=== PATIENT | male | born 1960 | race Caucasian/White ===

== ENCOUNTER 2023-09-20 16:03 | Outpatient (CLI) | payer OTHER, SELFPAY ==
[2023-09-20 16:15] VITALS: BP 165/83; PULSE 85; RESP 20; TEMP 36.7; O2SAT 95
[2023-09-20 16:51] VITALS: PULSE 79; O2SAT 93
--- NOTE | 2023-09-20 16:54 | PDOC.PAIN_ITS ---
Date of service: 09/20/23 Time of Service: 16:54 US Guided Injections Type of Ultrasound Guided Injection: Neck Right Levator scapulae, Paraspinous and Trapezius muscle Trigger Point Injection Pre-Procedural Evaluation TTP at the proposed muscles Referral Patient has been referred to the [facility] for Right Levator scapulae, Paraspinous and Trapezius muscle Neck Trigger Point Injection for a chief complaint of Right-sided neck pain Pre-Procedural Pain Score Pre-procedural pain score: 10/10 Reason for Exam Right-sided neck pain Patient Interview Patient was interviewed and medical record reviewed: Yes There were no contraindications to performing an US guided procedure. Risks,expected side effects, potential benefits were reviewed. The patient consent form was signed and witnessed. Standard time out procedure was performed. Patient Safety No skin abnormalities at the injection sight Procedure Description No sedation given for procedure Patient was placed in the prone position and the following Pulse Ox applied. Pre-Procedure ultrasound scanning performed using a Linear 9 MHz probe Site Preparation Chloroprep Local Anesthesia Skin and subcutaneous tissues anesthetized with: 5 mL of Lidocaine 2%. A 21 G 3.5 Pajunk ultrasound needle was placed under live US guidance using an in-plane approach to the target area. After visualization of the needle tip at the target area Depo-Medrol 40mg per cc were used. Total of Injectate/Medication Note: 1 cc Negative aspiration for blood. [place] were removed without difficulty. Ultrasound images were captured and stored. Patient Mental Status Patient was alert and awake during procedure Vital Signs Vital signs were stable throughout the procedure and recorded by nursing. Follow Up/Discharge Follow up plans and appointments were discussed with patient. Post procedure instruction was given as documented in nursing documentation. Discharge criteria met and patient discharged from Pain Management Center: Yes Post Procedure Pain Post Procedure Pain: 1/10 Patient tolerated procedure well Procedure Outcome: Successful Trigger Point Injection 3+muscles Non US Guided Injections Procedure Description Patient was placed in the prone position Post Procedure Pain Post Procedure Pain: 1/10
[2023-09-20] MEDS: Lidocaine 2% Multi-Dose 20 ML VIAL IJ (16:56)
[2023-09-20] MEDS: Nerve Block Tray 1 EACH MC (16:56)
[2023-09-20] MEDS: methylPREDNISolone ACETATE 40 MG/ML VIAL IJ (16:56)
== END 2023-09-20 16:04 | disposition home or self-care (01) ==
PROVIDERS: PCP Family Medicine; Visit Provider Preventive Medicine Occupational Medicine
DX: M54.2 Cervicalgia (principal); M79.18 Myalgia, other site
CPT/HCPCS: 00123; 20553; 76942; J1030; J2003

== ENCOUNTER 2023-11-15 11:04 | Outpatient (CLI) | payer OTHER, SELFPAY ==
[2023-11-15 11:11] VITALS: BP 170/88; PULSE 75; RESP 20; TEMP 36; O2SAT 96
--- NOTE | 2023-11-15 11:40 | DI.RAD_ITS ---
Exam(s) XR PAIN CLINIC SACRIOILIAC 2V EXAM: XR PAIN CLINIC SACRIOILIAC 2V CLINICAL HISTORY: Dx: Cluneal Neuropathy TECHNIQUE: 2D and realtime digital imaging was performed. Radiologist not present. CONTRAST MATERIAL: None. COMPARISON: No exams were available for comparison FINDINGS: Fluoroscopy was provided for pain management therapy. Please refer to procedure report or details. Radiation Exposure Index: Ka,r=5.83 mGy IMPRESSION: As above. RADIATION DOSE DELIVERED:
[2023-11-15 11:43] VITALS: BP 151/97; PULSE 70; RESP 14; O2SAT 95
[2023-11-15] MEDS: Nerve Block Tray 1 EACH MC (11:45)
[2023-11-15] MEDS: Bupivacaine 0.5% Pres-Free 10 ML VIAL IJ (11:45)
[2023-11-15] MEDS: Omnipaque 240 MG/ML 50 ML BTL IJ (11:45)
--- NOTE | 2023-11-15 15:50 | PDOC.PAIN_ITS ---
Date of service: 11/15/23 Time of Service: 12:00 Pain Managment Procedure Note Procedure Note Procedure Note: PROCEDURE NOTE BILATERAL CLUNEAL NERVE BLOCKS Date of Service: November 15, 2023 Patient: Mo Thomas Provider: Sudhakar Ramirez DO, MPH COMMENTS: I previously evaluated the patient in the office and their symptoms in relation to the sacroiliac joint pain have remained the same. Pre-operative diagnosis: Sacroiliac joint dysfunction Post-operative diagnosis: Same Pre-procedure pain: VAS= 6/10 Mo Thomas has been referred to our [facility] for a Bilateral Cluneal nerve blocks. Mo was interviewed and the medical record reviewed. There were no medical, pharmacologic, radiographic or other structural contraindications to attempting a fluoroscopically-guided, contrast-enhanced, Cluneal nerve blocks. The risks, benefits, and potential side effects of this procedure were reviewed with the patient. Questions and concerns were addressed. After it was clear that Mo was fully informed about the procedure, the printed consent form was signed by the patient and myself. Mo was placed in the prone position on the fluoroscopy table and an automated blood pressure cuff, 3 lead EKG, and pulse oximeter were applied. The skin entry point for approaching the Left Cluneal nerves was identified under the most advantageous fluoroscopic view and marked. Following thorough Chlorhexadine preparation of the skin and draping with sterile surgical drapes, 2 mls of 1% lidocaine was infiltrated into the skin at the entry point and the surrounding subcutaneous tissues. Next, a 3.5 22G spinal needle was placed under fluoroscopic guidance to the left iliac crest and 2 needles were placed. Placement was confirmed by a clear arthrogram resulting from the injection of 0.25ml of Omnipaque-240. Next, 1 cc of 0.5% Marcaine was injected at 2 locations along the iliac crest. The needle was then removed without difficulty. (48 ml of Omnipaque-240 was wasted). The exact procedure was completed on the opposite Cluneal nerves. Mo's vital signs were stable throughout the procedure and were as recorded in nursing records. Follow up plans and appointments were discussed with Mo. Post procedure instructions were given as documented in nursing records. Having met discharge criteria, Mo was discharged from the [facility]. COMMENTS: Post-procedure pain: VAS= 0/10. He will call back with his 1-4 hour post-procedure pain scores to see if he qualifies for RFA. I personally performed this entire procedure. SUDHAKAR RAMIREZ DO, MPH ABPMR-subspecialty board certification in Pain Medicine [facility]
== END 2023-11-15 11:05 | disposition home or self-care (01) ==
LOC: PC 11:04
PROVIDERS: PCP Family Medicine; Visit Provider Preventive Medicine Occupational Medicine
DX: M54.50 Low back pain, unspecified (principal); M46.1 Sacroiliitis, not elsewhere classified
CPT/HCPCS: 64450; 72200; J0665; Q9967

== ENCOUNTER 2024-07-01 15:18 | Outpatient (CLI) | payer OTHER, SELFPAY ==
--- NOTE | 2024-07-01 14:11 | DI.RAD_ITS ---
Exam(s) XR KNEE RT 1V EXAM: XR KNEE RT 1V CLINICAL HISTORY: pain. TECHNIQUE: 2D digital imaging was performed. COMPARISON: CR XR KNEE BILATERAL 4+ VIEWS from 11/22/2018 FINDINGS: Single lateral view of right knee: No evidence of fracture. There is ajrf-qb-bylt narrowing of the medial compartment. Moderate degene rative changes are evident in the patellofemoral compartment. There is a prominent joint effusion in the suprapatellar bursa. Posteriorly there are no calcifications, as are evident posteriorly in the opposite-left knee seen on radiographs of 11/22/2018 and most probably within Lan cyst in the popliteal fossa. IMPRESSION: Advanced narrowing of the medial compartment of the right knee. Joint effusion. DATA REPOSITORY: RADIATION DOSE DELIVERED:
--- NOTE | 2024-07-01 14:11 | DI.RAD_ITS ---
Exam(s) XR STANDING ALIGNMENT EXAM: XR STANDING ALIGNMENT CLINICAL HISTORY: pain. TECHNIQUE: 2D digital imaging was performed. COMPARISON: CR XR KNEE RT TRAUMA 4+ VIEWS [facility] ONLY from 12/08/2010 FINDINGS: 3 views There is posterior fusion hardware in the lower lumbar spine at L4-5-S1 levels secured by bilateral i ntrapedicular screws at these levels. The SI joints appear unremarkable. Hips appear unremarkable. Both knees exhibit urgb-rk-nafm narrowing of the medial compartments and marginal osteophytes of the medial compartments. There are also degenerative subarticular cysts evident within the medial tibial plateau over the left knee. There is preservation of height of the lateral compartment of both knee s with mild chondrocalcinosis. There is an element of Verus deformity bilaterally, slightly more pro minent on the right side. Hips appear unremarkable. Ankles unremarkable. IMPRESSION: Advanced prho-bi-txvz narrowing of the medial compartments of both knees. Bilateral varus deformity . DATA REPOSITORY: RADIATION DOSE DELIVERED:
== END 2024-07-01 15:19 | disposition home or self-care (01) ==
LOC: DIORS 15:18
PROVIDERS: PCP Family Medicine; Referring Provider Family Medicine; Visit Provider Student in an Organized Health Care Education/Training Program
DX: M17.11 Unilateral primary osteoarthritis, right knee (principal); M17.12 Unilateral primary osteoarthritis, left knee
CPT/HCPCS: 99203; 73560; 77073

== ENCOUNTER 2024-08-15 03:48 | Outpatient (CLI) | payer MEDICARE, SELFPAY ==
[2024-08-15 15:04] LABS: HCT 42.2 % (40.0-50.0); HGB 14.3 g/dL (13.5-17.5); MCH 33.6 pg (27.0-33.0); MCHC 33.9 % (32.0-36.0); MCV 99 fL (80-95); Platelet Count 242 10^3/uL (130-400); RBC 4.26 10^6/uL (4.36-5.78); RDW 13.7 % (11.8-14.1); RDW-SD 49.5 fL
[2024-08-15 15:33] LABS: Anion Gap 4.1 mmol/L (3-11); BUN 34 mg/dL (7-18); CO2 29.9 mmol/L (21.0-32.0); CREATININE 1.1 mg/dL (0.70-1.30); Calcium 9.9 mg/dL (8.5-10.1); Chloride 100 mmol/L (98-107); Glucose 88 mg/dL (74-106); Potassium 5.2 mmol/L (3.5-5.1); Sodium 134 mmol/L (136-145)
== END 2024-08-15 03:49 | disposition home or self-care (01) ==
LOC: LBO 03:49
PROVIDERS: PCP Family Medicine; Visit Provider Student in an Organized Health Care Education/Training Program
DX: Z01.818 Encounter for other preprocedural examination (principal)
CPT/HCPCS: 36415; 80048; 85027

== ENCOUNTER 2024-08-27 08:26 | Day surgery (SDC) | payer MEDICARE, SELFPAY ==
[2024-08-27] VITALS (65 sets, daily range): BP systolic 121–230; BP diastolic 67–164; PULSE 66–89; RESP 11–23; TEMP 36–36.9; O2SAT 83–98; BMI 28.5
--- NOTE | 2024-08-27 07:40 | W.PM.DSUDISC ---
Date of service: 08/27/24 Discharge Plan Disposition Patient Disposition: Home Condition: Good Discharge Details Reason For Visit: Right knee DJD Attending Provider: Shelton Crow Primary Care Provider: Karl Ngo Home Meds and New Rx's Prescriptions: New celecoxib [Celebrex] 200 mg capsule 200 mg PO BID PRNQty: 60 0RF Rx Instructions: Take one tablet twice daily for pain and inflammation aspirin 81 mg tablet,delayed release (DR/EC) 81 mg PO BID 30 Days Qty: 60 0RF acetaminophen 500 mg tablet 1,000 mg PO Q8H PRN Qty: 90 0RF Rx Instructions: Take two tablets up to every 8 hours as needed for pain docusate sodium [Colace] 100 mg capsule 100 mg PO BID Qty: 30 0RF pantoprazole 40 mg tablet,delayed release (DR/EC) 40 mg PO DAILY Qty: 14 0RF dexamethasone 4 mg tablet 4 mg PO DAILY Qty: 2 0RF Rx Instructions: Take one tablet once daily for two days gabapentin 300 mg capsule 300 mg PO QHS Qty: 14 0RF Rx Instructions: Take one tablet at bedtime oxycodone 5 mg tablet 5 mg PO Q4H PRNQty: 18 0RF Rx Instructions: Take one tablet up to every 4 hours as needed for severe postoperative pain Continued albuterol sulfate 90 mcg/actuation HFA aerosol inhaler 2 puff inhalation Q6H PRN pravastatin 40 mg tablet 40 mg PO DAILY tamsulosin [Flomax] 0.4 mg capsule 0.8 mg PO DAILY tizanidine 4 mg tablet 4 mg PO TID PRN tramadol 50 mg tablet 100 mg PO QID PRN lisinopril 40 mg tablet 40 mg PO DAILY sildenafil 100 mg tablet 100 mg PO DAILY PRN Rx Instructions: administer 30 minutes to 4 hours before activity spironolactone 50 mg tablet 50 mg PO DAILY Discontinued meloxicam 15 mg tablet 15 mg PO DAILY Discharge Instructions Additional Instructions: Total Knee Discharge Instructions Activity: The most important activity is to walk and to work on gentle motion (both flexion and extension). You should try to take short walks a few times a day. It is important that when resting you work on keeping the knee straight. Avoid putting a pillow behind the knee as this will encourage flexion. Work on range of motion exercises as provided by Physical Therapy. - Start outpatient physical therapy within 2 weeks. - You should wear the LAM hose on both legs for 2 weeks. You may remove these at night. You may also use any compression sock in place of the LAM hose. - Utilize [employer] to review exercises, see videos on exercises and obtain basic information pertaining to your surgery and your recovery. Dressing: Remove the Lc wrap by 2 days after your surgery and put on the LAM stocking given to you from the hospital. Keep the surgical dressing (underneath the LC wrap) in place for at least one week. After the first week it may be removed and replaced with light gauze and tape or nothing. The wound and dressing may get wet after 3 days but avoid soaking the dressing or otherwise it will need to be changed. Many people prefer covering the dressing with cling wrap (saran wrap) to minimize it from getting soaked. If it gets wet, just pat dry. If it starts to peel off then it will need to be changed. Medications: - You should take Tylenol and anti-inflammatory Celebrex as your primary pain control medications. If the Celebrex is too expensive or not covered, please call the office for another alternative (Advil/Ibuprofen or Naproxen/Aleve) - You have been prescribed a stronger pain medication Oxycodone for breakthrough pain, take as needed as prescribed. - You have also been prescribed a stomach acid reduction agent Pantoprozole to help reduce stomach acid and reflux. - You have been prescribed Gabapentin to take at night for restlessness and nerve pain. - You will be taking Aspirin 81mg twice a day for DVT prevention unless instructed otherwise. - You have also been prescribed Decadron to take to control post-operative nausea and pain. You will start this tomorrow. - If you have constipation you should take Colace (which has been prescribed) or Miralax (which is available [id number]). It takes most people 3-4 days to have a bowel movement. Follow-up: 2 weeks If you have any acute concerns or questions, please do not hesitate to contact the office at [phone]. You may contact Dr. Crow with any questions after hours through the hospital at [phone] or on his cell phone at [phone]. Referrals: Shelton Crow MD [ [facility] STAFF PHYSICIAN] - Equipment/Supplies: Walker Activity:: Elevate Remove Dressings/Wound Care:: Do Not Remove Shower/Bathe:: Cover Diet:: As Tolerated Discharge Orders Discharge Orders: Discharge Order (Routine); Ordered 08/27/24 Ordered By: Nandini Hernández
--- NOTE | 2024-08-27 08:17 | W.ANESPRE ---
General Info Date of Service Date Performed: 08/27/24 Height: 5 ft 5.5 in Weight: 78.925 kg Body Mass Index (BMI): 28.5 Surgical Procedure: Operation Date: 08/27/24 11:25 Proposed Procedure Side Surgeon p Knee Total Arthroplasty w/OrthAlign, Cementless CR Right Shelton Crow MD Meds Allergies and Home Medications Allergies Allergy/AdvReac Type Severity Reaction Status Date / Time No Known Allergies Allergy Verified 08/27/24 08:52 Home Medication ?Medication ?Instructions ?Recorded albuterol sulfate 90 mcg/actuation 2 puff inhalation Q6H PRN 06/06/23 aerosol inhaler pravastatin 40 mg tablet 40 mg PO DAILY 06/06/23 tamsulosin 0.4 mg capsule (Flomax) 0.8 mg PO DAILY 06/06/23 tizanidine 4 mg tablet 4 mg PO TID PRN 06/06/23 tramadol 50 mg tablet 100 mg PO QID PRN 06/06/23 sildenafil 100 mg tablet 100 mg PO DAILY PRN 09/05/23 spironolactone 50 mg tablet 50 mg PO DAILY 04/24/24 lisinopril 40 mg tablet 40 mg PO DAILY 08/15/24 acetaminophen 500 mg tablet 1,000 mg (2 x 500 mg) PO Q8H PRN 08/27/24 pain #90 tabs aspirin 81 mg tablet,delayed 81 mg PO BID 30 days #60 tabs 08/27/24 release celecoxib 200 mg capsule (Celebrex) 200 mg PO BID PRN #60 caps 08/27/24 dexamethasone 4 mg tablet 4 mg PO DAILY #2 tabs 08/27/24 docusate sodium 100 mg capsule 100 mg PO BID #30 caps 08/27/24 (Colace) gabapentin 300 mg capsule 300 mg PO QHS #14 caps 08/27/24 oxycodone 5 mg tablet 5 mg PO Q4H PRN #18 tabs 08/27/24 pantoprazole 40 mg tablet,delayed 40 mg PO DAILY #14 tabs 08/27/24 release Current Visit Medications: Current Medications Generic Name Dose Route Start Last Admin Trade Name Freq PRN Reason Stop Dose Admin Acetaminophen 1,000 mg 08/27/24 06:00 Acetaminophen 500 Mg Tab PO 09/25/24 23:59 PREOP TORY Celecoxib 400 mg 08/27/24 06:00 Celecoxib 200 Mg Cap PO 09/25/24 23:59 PREOP TORY Gabapentin 300 mg 08/27/24 06:00 Gabapentin 300 Mg Cap PO 09/25/24 23:59 PREOP TORY Hydromorphone HCl 0.5 mg 08/27/24 07:37 Hydromorphone 2 Mg/Ml Syr IVP 09/26/24 07:36 Q2H PRN PRN Ringer's Solution 1,000 mls @ 80 mls/hr 08/27/24 06:00 IV 09/25/24 23:59 INFUSION TORY Cefazolin Sodium/Dextrose 2 gm in 50 mls @ 100 mls/hr 08/27/24 06:00 Ancef Duplex IVPB 09/25/24 23:59 PREOP TORY Tranexamic Acid/Sodium Chloride 1,000 mg in 100 mls @ 600 mls/hr 08/27/24 06:00 IVPB 09/25/24 23:59 PREOP TORY Cefazolin Sodium/Dextrose 1 gm in 50 mls @ 100 mls/hr 08/27/24 08:00 Ancef Duplex IVPB 08/28/24 00:29 Q8H TORY IV Miscellaneous Supplies 1 each 08/27/24 06:00 Iv Access IV 09/25/24 23:59 DIRECTED TORY Oxycodone HCl 0 mg 08/27/24 07:37 Oxycodone 5 Mg Tab PO 09/26/24 07:36 Q3H PRN PRN Pain Sodium Chloride 0 ml 08/27/24 06:00 Normal Saline Flush 10 Ml Syr IV 09/25/24 23:59 PRN PRN Sodium Chloride 0 ml 08/27/24 06:00 Normal Saline 10 Ml Vial IJ 09/25/24 23:59 DIRECTED PRN Sterile Water 0 ml 08/27/24 06:00 Water,Injection,Sterile 10 Ml Vial IJ 09/25/24 23:59 DIRECTED PRN PFSH Active Problems Active Problems: Problem Status Onset Code Osteoarthritis of left knee Acute M17.12 Osteoarthritis of right knee Acute M17.11 Cluneal neuropathy Acute G58.8 Lumbar radiculitis Acute M54.16 Muscle pain Acute M79.10 Medical History Medical History Imaging abnormality Tobacco use Osteoarthritis Spine Hypertension Hyperlipidemia History of alcohol dependence Chronic pain BPH (benign prostatic hyperplasia) Osteoarthritis of both knees Lumbar disc disease Gastric mass Erectile dysfunction Colon polyps Cervical disc disease Bladder mass Gross hematuria Unspecified derangement, shoulder region Rotator cuff tear Other and unspecified disc disorder of lumbar region Other and unspecified alcohol dependence, continuous drinking behavior Lumbago High cholesterol Fall Essential hypertension Cervicalgia Back pain Asymptomatic varicose veins Arthritis of knee Surgical History Surgical History H/O esophagogastroduodenoscopy 03/27/23 H/O shoulder surgery History of bladder surgery Cystourethroscopy with fulguration and/or resection of MEDIUM bladder tumor(s) (2.0 to 5.0 cm) 03/27/23 H/O repair of rotator cuff Status post lumbar and lumbosacral fusion by anterior technique H/O arthroscopic knee surgery Tobacco Smoking/Tobacco Use Status: Current every day Tobacco Type: cigarettes Smoking packs per day: 1 Smoking cigarettes per day: 20.0 Years smoked: 45 Smoking pack-years: 45.00 Alcohol Alcohol Intake: current Alcohol intake frequency: 3 or more drinks per day Alcohol type: beer and hard liquor Substance Use Substance use: Occasionally Substance use type: marijuana Vital Signs and Lab Results Lab Results Blood Type / Crossmatch: No Data to Display Complete Blood Count: White Blood Count 5.80 10^3/uL (4.4-10.8) 08/15/24 14:43 Red Blood Count 4.26 10^6/uL (4.36-5.78) L 08/15/24 14:43 Hemoglobin 14.3 g/dL (13.5-17.5) 08/15/24 14:43 Hematocrit 42.2 % (40.0-50.0) 08/15/24 14:43 Platelet Count 242 10^3/uL (130-400) 08/15/24 14:43 Complete Metabolic Panel: Sodium 134 mmol/L (136-145) L 08/15/24 14:43 Potassium 5.2 mmol/L (3.5-5.1) H 08/15/24 14:43 Chloride 100 mmol/L (98-107) 08/15/24 14:43 Carbon Dioxide 29.9 mmol/L (21.0-32.0) 08/15/24 14:43 BUN 34 mg/dL (7-18) H 08/15/24 14:43 Creatinine 1.1 mg/dL (0.70-1.30) 08/15/24 14:43 Est GFR (CKD-EPI 2020) 75.90 (mL/min/1.73m2) 08/15/24 14:43 Calcium 9.9 mg/dL (8.5-10.1) 08/15/24 14:43 Glucose 88 mg/dL (74-106) 08/15/24 14:43 Liver Function Panel: No Data to Display Coagulation Panel: No Data to Display Cardiac Panel: No Data to Display Arterial Blood Gas: No Data to Display Venous Blood Gas: No Data to Display Pancreas Panel: No Data to Display Thyroid Panel: No Data to Display Infectious Disease: No Data to Display Blood Cultures: No Data to Display Toxicology Panel: No Data to Display Anesthesia Assessment and Plan Anesthesia History Personal History: No History of Anesthesia Complications Family History: No Family History of Anesthesia Complications Exercise Tolerance Exercise Tolerance: Metabolic Equivalents>4 Pertinent Negatives Pertinent Negatives: No Symptoms of GERD Cardiac & Pulmonary Exam Cardiac Exam: Normal S1/S2 Heart Sounds (distant) Pulmonary Exam: Clear Bilateral Breath Sounds Cardiac and Pulmonary Comment:: Found new RBBB. 12-lead obtained. Discussed presence of risk but did discuss that I am willing to proceed to day if the patient is. Patient is comfortable with proceeding. I did recommend he see a state auditor post-procedure for follow-up Implantable Cardiac Device Does patient have a Pacemaker or an ICD?: No Airway Exam Known Difficult Airway: No Mallampati Class: 1 Mouth Opening: Normal (> 3cm) Thyromental Distance: Greater than 3 cm Facial Hair: Full [place] Neck Range of Motion: Limited ROM and Known Cervical Instability or radiculopathy Neck Circumference: Normal Teeth Condition: Generalized Poor Dentition ASA Classification ASA Score: ASA 3 Emergency Case?: No NPO Status NPO Status: NPO Clears >2 hours, Solids >8 hours Anesthesia Plan Resuscitation Status: Full Code Anesthesia Technique: General Anesthesia Airway Planned: Endotracheal Tube Pain Management: Surgeon and patient request nerve block Monitors Used: Standard Monitors
[2024-08-27] MEDS: Acetaminophen 500 MG TAB 1000 MG PO (09:08)
[2024-08-27] MEDS: Celecoxib 200 MG CAP 400 MG PO (09:09)
[2024-08-27] MEDS: Gabapentin 300 MG CAP PO (09:09)
[2024-08-27] MEDS: Lactated Ringers 1,000 ML 80 ML IV ×2 (09:31→14:25)
--- NOTE | 2024-08-27 10:00 | RT.EKG_ITS ---
APPROVED REPORT Exam: Resting ECG Reason for Exam: Noted abnormalities on three lead Patient Location: O HR:68 bpm ECG Measurements Heart Rate 68 AXIS PA 218 P 46 QRSd 168 QRS -89 QT 427 T -3 QTc 455 Conclusion Sinus rhythm...normal P axis, V-rate 60- 99 Borderline prolonged PA interval...PA >212, V-rate 50- 90 RBBB and LAFB...QRSd >120mS, axis(-40,240)
--- NOTE | 2024-08-27 11:14 | W.ANESNERVE ---
Nerve Block Single Injection Procedure Date and Time Date Performed: 08/27/24 Procedure Start: : Location Where Procedure Performed Procedure Location: Day Surgery Unit Reason Performed: Postoperative Analgesia Requesting Provider: Shelton Crow Timeout Performed Timeout Performed: Yes Monitoring Used ECG, Blood Pressure and SpO2 Sterility Sterility: Hand Hygiene, Surgical Cap, Surgical Mask, Sterile Gloves and Chlorhexidine Sedation Given During Procedure Sedation Given (Indicate Dose Given): Versed IV Dose:: 2 mg and Precedex IV Dose:: 8 mcg Patient Mental Status Patient Mental Status: Sedate with meaningful communication Nerve Block 1st Nerve Block: Laterality: Right Block Type: Adductor Canal Ultrasound Image Saved?: Yes Needle / Catheter Used: 100mm SonoPlex II Local Anesthetic Bolus (Indicate Dose Given): Lidocaine used for local infiltration of skin, Injected in 3-5ml increments after negative blood aspiration and Bupivacaine 0.25% Dose:: 15 ml Additives (Indicate Dose Given): Normal Saline Ultrasound: Sterile probe cover and gel used Nerve Stimulator: Supplement to Ultrasound use and No twitch or parasthesia noted < 0.5 mA Paresthesia: None Procedure Tolerated: No Complications and Patient tolerated well Procedure Outcome: Successful Performed By: Sudhakar Bethea
--- NOTE | 2024-08-27 11:21 | NUR.NOTE ---
12 leag EKG performed on pt at 10:14am in pre-op, under the orders of anesthesia. Jamison RNNursing Note:
[2024-08-27] MEDS: ceFAZolin 2 GM/50 ML BAG IVPB (11:25)
[2024-08-27] MEDS: TRANEXAMIC ACID/SOD. CHL. 1,000 MG/100 ML BAG 600 MG IVPB (11:34)
[2024-08-27] MEDS: fentaNYL 100 MCG/2 ML VIAL IVP ×2 (13:22→13:29)
[2024-08-27] MEDS: Normal Saline 10 ML VIAL IJ (13:42)
[2024-08-27] MEDS: HYDROmorphone 2 MG/ML SYR IVP ×2 (13:42→14:10)
--- NOTE | 2024-08-27 14:00 | DI.RAD_ITS ---
Exam(s) XR PORTABLE CHEST AP EXAM: XR PORTABLE CHEST AP CLINICAL HISTORY: Reports possible chronic right brenda-diaphragm TECHNIQUE: 2D digital imaging was performed. COMPARISON: No exams were available for comparison FINDINGS: LUNGS: Clear. No pleural abnormality seen. HEART: Normal size. AORTA: Normal diameter. BONES: Right shoulder prosthesis. Soft tissues: Unremarkable. IMPRESSION: No acute findings. DATA REPOSITORY: RADIATION DOSE DELIVERED:
[2024-08-27] MEDS: LORazepam 2 MG/ML VIAL 0.5 MG IVP (14:03)
[2024-08-27] MEDS: ACETAMINOPHEN 1,000 MG/100 ML BAG 400 MG IVPB (14:30)
--- NOTE | 2024-08-27 15:05 | W.PM.OP ---
Operative Note Operative Note PRE-OP DIAGNOSIS: Right Knee Osteoarthritis with severe Varus Deformity POST-OP DIAGNOSIS: same PROCEDURE: Right Total Knee Replacement with Intraoperative Navigation SURGEON: Shelton Crow TUMBLER DYEING MACHINE OPERATOR: Nandini Hernández ANESTHESIA TYPE: Spinal Refer to Anesthesia Record ESTIMATED BLOOD LOSS: 150 PATHOLOGY: none sent TOURNIQUET TIME: 0 COMPLICATIONS: None Patient was transported to: PACU Patient's condition: stable Implants: 1. Depuy Attune Cementless Cruciate Retaining Femoral Component, Size 7 2. Depuy Attune Cementless Fixed Bearing Tibial Component, Size 7 3. Depuy Attune 7x7mm CR/FB Poly Indications: I have seen Mo in clinic for symptoms of RIGHT knee arthritis, confirmed with radiographic findings. He has exhausted nonoperative methods and was having significant limitations in daily function and desired better function and less pain. I discussed the technical details of a knee replacement. I explained the risks of the procedure to include, but not limited to, bleeding, infection, pain, stiffness, fracture, damage to nerves and vessels, damage to muscles and tendons, loosening, need for repeat procedure, blood clot and cardiopulmonary demise. Despite these risks, Mo elected to proceed. Findings: There was significant signs of arthritis throughout the knee with significant varus deformity and large osteophytes. Procedure Description: Mo was greeted in the preoperative holding area where the correct side was identified and marked. The consent was reviewed with the patient and signed. The history and physical was updated. All questions were answered. Preoperative mediacations were administered: Acetaminophen 1000mg, Celebrex 400mg, and Gabapentin 300mg. An adductor canal block was then administered by the anesthesia team in the DSU. He was taken back to the operating room. A general anesthestic was then administered. The patient was placed into the supine position on the operating room table. Posts were placed for positioning during the procedure. All bony prominences were well padded. Prophylactic antibiotics in the form of Cefazolin were administered. 1g of Tranxemic Acid was given intravenously within 30 minutes of incision. The right leg was then prepped with Chloraprep and draped in a standard fashion with impervious stockinette. A second prep with Chloraprep was performed prior to application of Iodine impregnated skin protection. A timeout to confirm correct identity, side and site, procedure, allergies, anesthesia, and medical concerns was performed. With the knee in some flexion, a midline incision was made overlying the knee. Full thickness skin flaps were raised once the extensor mechanism was encountered. These were raised medially and laterally. Any bleeding was controlled with electrocautery. Once the extensor mechanism was fully exposed, a medial parapatellar arthrotomy was performed in a flexed position. All bleeding from the arthrotomy and the geniculate arteries was coagulated. A medial subperiosteal peel was performed with electrocautery to the midcoronal plane. Due to the significant varus deformity the entire medial tibial plateau was exposed. The fat pad was removed while keeping the patellar tendon protected. The anterior distal femur synovium was removed for later visualization. The ACL and PCL were resected and the anterior horn of the lateral meniscus was transected. The knee was then flexed with the patella everted. Large osteophytes from the tibia were removed. Large osteophytes from the femur were removed. A single starting pin was then placed 1cm anterior to the PCL insertion and the notch in the direction of the femoral head. The OrthoAlign device was applied over the pin. It was oriented to be in line with the epicondylar axis and the trochlear groove. It was then pinned into place. The navigation computer was then turned on and calibrated. The distal femur cut was set at 0.5 degrees varus and 3.5 degrees flexion. The distal femur cutting guide then was positioned for a 9mm cut. The distal femur was cut with an oscillating saw while protecting the soft tissues. The tibia was then addressed. The OrthoAlign device was placed over the tibial tubercle and medial tibia and secured into position. Once again, OrthoAlign was calibrated and then set for a 2 degree varus cut and 5.5 degrees of posterior slope. With this locked into position, the cut thickness stylus was used to assess cut thickness. The medial side, most involved side, was set for a 4mm cut. This was then held in position and pinned into place with 2 additional pins and a cross pin for stability. The medial and lateral collateral ligaments were protected and the cut was performed. With this completed, it was assessed and noted to be of appropriate dimensions. The guide and OrthoAlign was removed. A spacer block was inserted and the knee was brought into extension to ensure enough space was present. . The Orthoalign gap balancing device was then placed in extension. This was used to ensure that the ligaments were properly balanced with up to 2 to 3 mm laxity laterally compared medially. The extension gap was measured as 18mm. The knee was then brought into 90 degrees of flexion and the ligament fish frog or oyster farmer was once again placed. Under the same amount of force the flexion gap was measured. The Attune specific jig was placed and the flexion gap was made to match the extension gap. The femur was then sized as a size 7. The 4-in-1 cutting guide was the placed. An maite wing was used to confirm appropriate position of the anterior cut to avoid notching. This cutting guide was ensured to be flush on the cut surface and then pinned into place with headed pins. While protecting the soft tissues, quad tendon, and collateral ligaments, the anterior and posterior cuts were performed with a saw. The central two pins were removed and the posterior and anterior chamfers were cut next. The notch-cutting guide was placed. This was pinned to lateralize the femoral component as much as possible while keeping it flush on the cut surface. This was then pinned into position. A saw was used to make the notch cut. A rasp smoothed the cut surfaces. The medial and lateral menisci were removed. A trial femoral component was then inserted, impacted down to the cut surfaces, and the lug holes were drilled. A provisional trial tibial component was placed and the knee was brought through range of motion. The polyethylene was trialed until there was good flexion and extension with excellent stability to the medial and lateral collaterals. The patella was tracking without thumbs. A size 7mm polyethylene component provided the best range of motion and stability with less than 2mm gapping with medial and lateral stress and full extension without significant hyperextension. The tibial cut surface was fully exposed. The tibia was then sized as a 7. The tibia had been previously marked during trialing to correspond to the center of the tibial component to help with rotation. The trial was aligned to this vira, approximately rotated to the medial 1/3rd of the tibial tubercle. The trial was pinned into place. The tibia was prepared with a reamer and a keel punch and lug holes. The lugs of the femur were drilled. There was no significant arthritis of the patella and therefore the patella was not resurfaced. The trial components were removed. The final components were opened on the back table. The periosteal and capsular tissues, especially posteriorly, around the knee were then systematically injected with a periarticular cocktail consisting of 246mg of Ropivacaine, 0.5mg of Epinephrine, 0.08mg of Clonidine, and 30mg of Ketorolac, diluted to 100cc. On the back table, with the implants opened, the cement was mixed. One batch of high viscosity cement was prepared with vacuum assistance. After the cement was ready a small amount was placed on the cut surface of the patella and the patellar button was clamped into position and held. While the cement was hardening, the cementless knee components were placed. Starting with the tibial component, the tibia was subluxed anteriorly and the lug holes of the component were lined up. The tibia was then impacted with an impactor and mallet until the tibial component was in contact with the tibia. Then, the femoral component was inserted. The lug holes were aligned and the component was impacted into position. The final polyethylene component was inserted. The knee was irrigated with Surgiphor Betadine solution. This was allowed to sit in the knee for 3 minutes and then it was thoroughly irrigated out with saline. After the cement had finally cured, approximately 15min, the clamp was removed from the patella and the knee was taken through range of motion. The patella was tracking with a no-thumbs technique. The capsule was then reapproximated with a No. 1 Vicryl at multiple locations. The capsule was finally closed with a No. 2 Stratafix, barbed suture. Deep tissues were then reapproximated with 0 Vicryl and 2-0 Vicryl. The skin was closed with a running 3-0 Monocryl in a subcuticular fashion. This was reinforced with skin glue. A Mepilex silver dressing was applied along with a [id number] MICHEAL wrap. A CryoCuff was applied. Mo was transferred to the hospital bed without difficulty an suffering no apparent complication. Mo has a good prognosis. Physical therapy will start today and without restrictions, weight-bearing as tolerated. Aspirin 81mg BID will be used for DVT prophylaxis. Date of Procedure: 08/27/24
[2024-08-27] MEDS: oxyCODONE 5 MG TAB PO (15:27)
--- NOTE | 2024-08-27 16:32 | W.ANESPOSTOP ---
Postoperative Evaluation Date, Time and Location Date Performed: 08/27/24 Time Performed: 14:40 Patient Location: PACU Vital Signs Most Recent Imported Vital Signs: Most Recent Vital Signs Temp Pulse Resp BP Pulse Ox 36.9 C 89 14 173/85 H 95 08/27/24 15:55 08/27/24 15:55 08/27/24 15:55 08/27/24 15:55 08/27/24 15:55 Pain Score Most Recent Pain Score: Most Recent Pain Score Pain Level 2 08/27/24 15:55 Assessment Mental Status: Arousable with meaningful communication Airway and Respiratory Function: Patent airway with normal (patient baseline) respiratory exam (using incentive spirometer well) Cardiovascular Function: Hemodynamically Stable Hydration Status: Adequately Hydrated Nausea & Vomiting: No Nausea or Vomiting Pain: Pain is Moderate or Severe Postoperative Pain Management: Pain being addressed with medication Peripheral Nerve Block: Regional nerve block not resolved at time of post operative discharge
--- NOTE | 2024-08-27 17:20 | PT.INIE ---
PT Notes Visit Reasons: Right knee DJD Physical Therapy Day Surgery Initial Evaluation Date: 08/27/2024 Referring Doctor: Nandini Hernández, Dr. Crow PT Orders: PT CONSULT: Status post Ortho surgery Precautions: Right lower extremity weightbearing as tolerated Patient Profile/Admitting Diagnosis: Patient is 64-year-old male presenting status post elective right TKA secondary to DJD. Postop uncomplicated. PMHX: Tobacco use Osteoarthritis SpineHypertension Hyperlipidemia History of alcohol dependence Chronic pain BPH (benign prostatic hyperplasia) Osteoarthritis of both knees Lumbar disc disease Gastric mass Erectile dysfunction Colon polyps Cervical disc disease Bladder mass Gross hematuria Unspecified derangement, shoulder region Rotator cuff tear Other and unspecified disc disorder of lumbar region Other and unspecified alcohol dependence, continuous drinking behavior Lumbago High cholesterol Fall Essential hypertension Cervicalgia Back pain Asymptomatic varicose veins Arthritis of knee Surgical History H/O esophagogastroduodenoscopy 03/27/23H/O shoulder surgery History of bladder surgery Cystourethroscopy with fulguration and/or resection of MEDIUM bladder tumor(s) (2.0 to 5.0 cm) 03/27/23H/O repair of rotator cuff Status post lumbar and lumbosacral fusion by anterior technique H/O arthroscopic knee surgery Social History/Home Situation: Patient resides alone in a trailer with lift/elevator to enter. Patient reports trailer is wheelchair accessible with wide doors and curb list entry to showers. Patient reports multiple grab bars in bathroom and shower area. Patient very active prior to surgery, independent ambulation, home management, meal prep, medication management, driving. Equipment Owned/DME: None. Patient fitted for and issued FWW through [employer] Subjective: Patient reports home is accessible and is looking forward to having less pain in his knee. Objective: [] General Observation: Male semireclined in stretcher Cryo/Cuff to right knee oxygen at 2 L with sats 96% IV infusing. Nurse present and removed oxygen saturating at 94% on room air . Mental Status: a+ O x 4 cooperative , motivated Pain: 3/10 right knee ROM: [] Right Upper Extremity: WFL except shoulder elevation to horizontal Left Upper Extremity: WFL shoulder elevation to ~100 degrees Right Lower Extremity: WFL except knee 5-105 degrees pt with impaired hamstring length Left Lower Extremity: WNL with shortened hamstring length Strength: [] Right Upper Extremity: shoulder 4/5 within available ROM, elbow 4/5 grasp strong Left Upper Extremity: shoulder 4/5 elbow 5/5 grasp strong Right Lower Extremity: Hip flexion: 3- /5; hip abduction: 3- /5; hip extension: 3 /5; knee extension: 3- /5; knee flexion: 2+/5 ankle DF: 3/5 ; ankle PF: 3 /5, pt requires cues for quad set without compensation of glutes and hamstring, (+) lag with shortened SLR. Pt able to activate QS in stand with roll against posterior knee for terminal knee extension Left Lower Extremity: 5/5 Sensation: intact Bed Mobility/Transfers: [] Supine to sit independent Sit to stand independent with good carryover of hand placement Stand to sit independent with good carryover of hand placement Bed to chair independent with FWW Gait: SBA with FWW 150 feet level surface including turns , slight knee flexion on right at mid stance but able to hold without buckling. decreased knee flexion during right swing phase with early heel off on right. stairs: 5 steps with B rails step to pattern SBA Balance: [] Static Sitting: normal Dynamic Sitting: good Static Standing: good Dynamic Standing: Fair+ Special Tests: [] Mobility Limitations Standardized Measure [] [facility] AM-PAC 6 clicks Basic Mobility Inpatient Short Form: [] Raw Score: 23 CMS Score: 11.20% Treatment: 29280 Informed Consent/Education: Patient instructed in purpose of PT consult. Packet containing TKA exercise protocol has been given to patient. Education and training on initial set of exercises x 5 reps that can be done at home have been completed with patient. Assessment: Patient presents with clinical signs and symptoms consistent with current/admitting diagnoses that have resulted to mobility limitations, gait instability, generalized weakness, and impairment of motor control as demonstrated by the following impairment level findings: 1. Decreased strength to left knee major muscle groups 2. Impaired standing balance 3. Limitation of joint range of motion in left knee Impairments are contributing to the following functional limitations: 1. Inability to safely ambulate without assistive device 2. Increase completion time for mobility ADL performance 3. Increased fall risk Patient is assessed as a moderate complexity based on the following: History: 64-year-old male with impairment level findings, functional limitations, and past medical history as indicated above Examination: Demonstrable impairment in strength, balance, and mobility level with underlying impairments and functional limitations as documented above Presentation: evolving/stable Decision Making: moderate Goals: N/A. Plan of Care/Treatment Plan: N/A. DISCHARGE RECOMMENDATIONS:Home with HEP and outpatient PT as scheduled TREATMENT CODE/TIME: 89082/68464 , [id number] Thank you for the opportunity to participate in the care of this patient. Gracie Ferrell, PT [facility]
== END 2024-08-27 17:00 | disposition home or self-care (01) ==
LOC: SUR 08:27
PROVIDERS: PCP Family Medicine; Visit Provider Student in an Organized Health Care Education/Training Program
PROC: (CPT 27447; principal; 2024-08-27 11:15)
DX: M17.11 Unilateral primary osteoarthritis, right knee (principal); G89.18 Other acute postprocedural pain; M25.561 Pain in right knee; I10 Essential (primary) hypertension; E78.5 Hyperlipidemia, unspecified; M54.16 Radiculopathy, lumbar region; F17.210 Nicotine dependence, cigarettes, uncomplicated
CPT/HCPCS: 27447; 20985; 64447; 97162; 97530; 71045; 93005; 93010; C1776; J0131; J0665; J0690; J1100; J1171; J2060; J2250; J2405; J2704; J3010; J3475

== ENCOUNTER 2024-09-09 15:35 | Outpatient (CLI) | payer MEDICARE, SELFPAY ==
--- NOTE | 2024-09-09 14:40 | DI.US_ITS ---
Exam(s) US LOWER EXTREMITY VENOUS RT EXAM: US LOWER EXTREMITY VENOUS RT CLINICAL HISTORY: pain, s/p RTKA, ?DVT, I82.401-acute embolism and thrombosis of unspecified. TECHNIQUE: Lower extremity venous ultrasound performed using grayscale, color-flow, and spectral Do ppler analysis. COMPARISON: No exams were available for comparison FINDINGS: The common femoral, femoral and popliteal veins demonstrate normal compressibility, augmentation, and color Doppler. The posterior tibial and peroneal veins are patent. There is sub optimal visualization of the production boring machine operator ior tibial veins due to swelling patient discomfort. No saphenous vein thrombosis or other superficial venous thrombosis is seen. No hematoma or Lan's cyst is seen. Lower leg edema. IMPRESSION: Lower leg edema. No evidence of DVT. DATA REPOSITORY:
== END 2024-09-09 15:55 ==
LOC: DI 15:35
PROVIDERS: PCP Family Medicine; Visit Provider Physician Assistant
DX: I82.401 Acute embolism and thrombosis of unspecified deep veins of right lower extremity (principal); Z96.651 Presence of right artificial knee joint; Z98.890 Other specified postprocedural states
CPT/HCPCS: 93971

== ENCOUNTER 2024-09-09 15:51 | Outpatient (CLI) | payer MEDICARE, SELFPAY ==
--- NOTE | 2024-09-09 13:45 | DI.RAD_ITS ---
Exam(s) XR STANDING ALIGNMENT XR KNEE RT 1V EXAM: XR STANDING ALIGNMENT and XR knee RT 1 V CLINICAL HISTORY: 1ST POST OP R TKA. TECHNIQUE: 2D digital imaging was performed. Five images were obtained. COMPARISON: CR XR STANDING ALIGNMENT from 07/01/2024 CR XR KNEE RT 1V from 07/01/2024 FINDINGS: BONES: Posterior spinal surgery is seen extending from L4 through S1. The hips are well maintained. Since the prior examination, the patient has undergone a right knee arthroplasty. There osteophytes seen at the posterior patella. The orthopedic hardware appears in good position. There is a joint effusion. In the left knee, there are marked degenerative changes present particularly the medial fe moral tibial joint where there is [id number]. Osteophytes are seen both medially and laterally. T he ankles are well maintained.There is no significant leg length discrepancy. SOFT TISSUE: Atherosclerotic calcification is present. IMPRESSION: 1. Interval right knee arthroplasty. 2. Marked degenerative changes seen in the left knee. DATA REPOSITORY: RADIATION DOSE DELIVERED:
--- NOTE | 2024-09-09 13:45 | DI.RAD_ITS ---
Exam(s) XR STANDING ALIGNMENT XR KNEE RT 1V EXAM: XR STANDING ALIGNMENT and XR knee RT 1 V CLINICAL HISTORY: 1ST POST OP R TKA. TECHNIQUE: 2D digital imaging was performed. Five images were obtained. COMPARISON: CR XR STANDING ALIGNMENT from 07/01/2024 CR XR KNEE RT 1V from 07/01/2024 FINDINGS: BONES: Posterior spinal surgery is seen extending from L4 through S1. The hips are well maintained. Since the prior examination, the patient has undergone a right knee arthroplasty. There osteophytes seen at the posterior patella. The orthopedic hardware appears in good position. There is a joint effusion. In the left knee, there are marked degenerative changes present particularly the medial fe moral tibial joint where there is [id number]. Osteophytes are seen both medially and laterally. T he ankles are well maintained.There is no significant leg length discrepancy. SOFT TISSUE: Atherosclerotic calcification is present. IMPRESSION: 1. Interval right knee arthroplasty. 2. Marked degenerative changes seen in the left knee. DATA REPOSITORY: RADIATION DOSE DELIVERED:
== END 2024-09-09 15:52 | disposition home or self-care (01) ==
LOC: DIORS 15:51
PROVIDERS: PCP Family Medicine; Referring Provider Family Medicine; Visit Provider Physician Assistant
DX: Z96.651 Presence of right artificial knee joint (principal); Z47.1 Aftercare following joint replacement surgery; R60.0 Localized edema
CPT/HCPCS: 99024; 73560; 77073

== ENCOUNTER → 2024-10-17 10:26 | Outpatient (BNVA) | payer MEDICARE, SELFPAY | PROVIDERS: PCP Family Medicine; Referring Provider Family Medicine; Visit Provider Student in an Organized Health Care Education/Training Program | DX: Z47.1 Aftercare following joint replacement surgery (principal); M17.12 Unilateral primary osteoarthritis, left knee; Z96.651 Presence of right artificial knee joint | CPT/HCPCS: 20610; 99213; J1010 ==

== ENCOUNTER → 2024-11-28 10:45 | Outpatient (BNVA) | payer MEDICARE, SELFPAY | PROVIDERS: PCP Family Medicine; Referring Provider Family Medicine; Visit Provider Physician Assistant | DX: M17.12 Unilateral primary osteoarthritis, left knee (principal); Z96.651 Presence of right artificial knee joint; Z47.1 Aftercare following joint replacement surgery | CPT/HCPCS: 99213 ==

== ENCOUNTER 2025-03-03 04:08 | Outpatient (CLI) | payer MEDICARE, SELFPAY ==
[2025-03-04 11:41] LABS: HCT 43.8 % (40.0-50.0); HGB 14.0 g/dL (13.5-17.5); MCH 32.0 pg (27.0-33.0); MCHC 32.0 % (32.0-36.0); MCV 100 fL (80-95); MPV 9.7 fL (8.0-11.0); Platelet Count 253 10^3/uL (130-400); RBC 4.38 10^6/uL (4.36-5.78); RDW 15.9 % (11.8-14.1); RDW-SD 59.3 fL; WBC 5.21 10^3/uL (4.4-10.8)
[2025-03-04 11:42] LABS: Anion Gap 6.4 mmol/L (3-11); BUN 22 mg/dL (7-18); CO2 31.6 mmol/L (21.0-32.0); Calcium 9.7 mg/dL (8.5-10.1); Chloride 102 mmol/L (98-107); Estimated GFR 100.06 (mL/min/1.73m2); Glucose 106 mg/dL (74-106); Potassium 5.2 mmol/L (3.5-5.1); Sodium 140 mmol/L (136-145)
== END 2025-03-03 04:09 | disposition home or self-care (01) ==
LOC: LBO 04:08
PROVIDERS: PCP Family Medicine; Visit Provider Student in an Organized Health Care Education/Training Program
DX: M17.12 Unilateral primary osteoarthritis, left knee (principal); Z01.818 Encounter for other preprocedural examination
CPT/HCPCS: 80048; 85027

== ENCOUNTER 2025-03-03 15:57 | Outpatient (CLI) | payer MEDICARE, SELFPAY ==
--- NOTE | 2025-03-03 15:00 | DI.RAD_ITS ---
Exam(s) XR KNEE LT 1V EXAM: XR KNEE LT 1V CLINICAL HISTORY: L KNEE OA. TECHNIQUE: 2D digital imaging was performed. Single lateral view with template ball. COMPARISON: CR XR KNEE BILATERAL 4+ VIEWS from 11/22/2018 CR XR KNEE RT 1V from 09/09/2024 CR XR STANDING ALIGNMENT from 09/09/2024 FINDINGS: BONES: No acute fracture is present. No bony destructive lesion is seen. JOINTS: There is severe narrowing of the femoral tibial joint space a small joint effusion is seen. There is spurring at the articular aspect of the patella and adjacent femur. SOFT TISSUE: Loose bodies noted posterior to the tibia may reside within a Lan's cyst. IMPRESSION: Severe degenerative changes. Posterior loose bodies. DATA REPOSITORY: RADIATION DOSE DELIVERED:
== END 2025-03-03 15:58 | disposition home or self-care (01) ==
LOC: DIORS 15:57
PROVIDERS: PCP Family Medicine; Visit Provider Physician Assistant
DX: Z01.818 Encounter for other preprocedural examination (principal); M17.12 Unilateral primary osteoarthritis, left knee
CPT/HCPCS: 99024; 73560

== ENCOUNTER 2025-03-12 08:28 | Day surgery (SDC) | payer MEDICARE, SELFPAY ==
[2025-03-12] VITALS (35 sets, daily range): BP systolic 136–200; BP diastolic 67–117; PULSE 54–87; RESP 9–21; TEMP 36–36.9; O2SAT 91–99; BMI 28.9
--- NOTE | 2025-03-12 07:16 | W.PM.DSUDISC ---
Date of service: 03/12/25 Discharge Plan Disposition Patient Disposition: Home Condition: Good Discharge Details Reason For Visit: Left knee DJD Attending Provider: Shelton Crow Primary Care Provider: Karl Ngo Home Meds and New Rx's Prescriptions: New celecoxib [Celebrex] 200 mg capsule 200 mg PO BID PRNQty: 60 0RF Rx Instructions: Take one tablet twice daily for pain and inflammation aspirin 81 mg tablet,delayed release (DR/EC) 81 mg PO BID 30 Days Qty: 60 0RF acetaminophen 500 mg tablet 1,000 mg PO Q8H PRN Qty: 90 0RF Rx Instructions: Take two tablets up to every 8 hours as needed for pain docusate sodium [Colace] 100 mg capsule 100 mg PO BID Qty: 28 0RF pantoprazole 40 mg tablet,delayed release (DR/EC) 40 mg PO DAILY Qty: 14 0RF Rx Instructions: Take one tablet once daily dexamethasone 4 mg tablet 4 mg PO DAILY Qty: 2 0RF Rx Instructions: Take one tablet once daily for two days gabapentin 300 mg capsule 300 mg PO QHS Qty: 14 0RF Rx Instructions: Take one tablet at bedtime hydromorphone 4 mg tablet 4 mg PO Q4H PRNQty: 30 0RF Continued pravastatin 40 mg tablet 40 mg PO DAILY tamsulosin [Flomax] 0.4 mg capsule 0.8 mg PO DAILY tizanidine 4 mg tablet 4 mg PO TID PRN albuterol sulfate [Ventolin HFA] 90 mcg/actuation HFA aerosol inhaler 2 puff inhalation Q6H PRN lisinopril 40 mg tablet 40 mg PO DAILY sildenafil 100 mg tablet 100 mg PO DAILY PRN Rx Instructions: administer 30 minutes to 4 hours before activity spironolactone 50 mg tablet 50 mg PO DAILY Patient Comments: 03/12/25: pt reports he developed a pain in his chest using this, PCP advised to no longer take. Last took 02/07. FS RN naloxone 4 mg/actuation spray,non-aerosol 4 mg intranasal Q2-3M PRN (Reason: opioid overdose) Qty: 2 0RF Rx Instructions: spray 1 dose into ONE nostril; alternate nostrils w each dose until help arrives Discontinued tramadol 50 mg tablet 100 mg PO QID PRN acetaminophen 500 mg tablet 1,000 mg PO Q8H PRN Qty: 90 0RF Rx Instructions: Take two tablets up to every 8 hours as needed for pain meloxicam 15 mg tablet 15 mg PO DAILY Discharge Instructions Additional Instructions: Total Knee Discharge Instructions Activity: The most important activity is to walk and to work on gentle motion (both flexion and extension). You should try to take short walks a few times a day. It is important that when resting you work on keeping the knee straight. Avoid putting a pillow behind the knee as this will encourage flexion. Work on range of motion exercises as provided by Physical Therapy. - Start outpatient physical therapy within 2 weeks. - You should wear the LAM hose on both legs for 2 weeks. You may remove these at night. You may also use any compression sock in place of the LAM hose. - Utilize [employer] to review exercises, see videos on exercises and obtain basic information pertaining to your surgery and your recovery. Dressing: Remove the Lc wrap by 2 days after your surgery and put on the LAM stocking given to you from the hospital. Keep the surgical dressing (underneath the LC wrap) in place for at least one week. After the first week it may be removed and replaced with light gauze and tape or nothing. The wound and dressing may get wet after 3 days but avoid soaking the dressing or otherwise it will need to be changed. Many people prefer covering the dressing with cling wrap (saran wrap) to minimize it from getting soaked. If it gets wet, just pat dry. If it starts to peel off then it will need to be changed. Medications: - You should take Tylenol and anti-inflammatory Celebrex as your primary pain control medications. If the Celebrex is too expensive or not covered, please call the office for another alternative (Advil/Ibuprofen or Naproxen/Aleve) - You have been prescribed a stronger pain medication Hydromorphone for breakthrough pain, take as needed as prescribed. - You have also been prescribed a stomach acid reduction agent Pantoprozole to help reduce stomach acid and reflux. - You have been prescribed Gabapentin to take at night for restlessness and nerve pain. - You will be taking Aspirin 81mg twice a day for DVT prevention unless instructed otherwise. - You have also been prescribed Decadron to take to control post-operative nausea and pain. You will start this tomorrow. - If you have constipation you should take Colace (which has been prescribed) or Miralax (which is available [id number]). It takes most people 3-4 days to have a bowel movement. Follow-up: 2 weeks If you have any acute concerns or questions, please do not hesitate to contact the office at [phone]. You may contact Dr. Crow with any questions after hours through the hospital at [phone] or on his cell phone at [phone]. Stand Alone Forms: Anesthesia Discharge Inst., [place].Nerve Block Instructions, Bravo Johnson ([facility]) Referrals: Shelton Crow MD [ [facility], Orthopaedic Surgical] - 03/27/25 10:30 am Equipment/Supplies: Walker Activity:: Elevate Remove Dressings/Wound Care:: Do Not Remove Shower/Bathe:: Cover Diet:: As Tolerated Discharge Orders Discharge Orders: Discharge Order (Routine); Ordered 03/12/25 Ordered By: Nandini Hernández
[2025-03-12] MEDS: Acetaminophen 500 MG TAB 1000 MG PO (09:02)
[2025-03-12] MEDS: Gabapentin 300 MG CAP PO (09:02)
[2025-03-12] MEDS: Celecoxib 200 MG CAP 400 MG PO (09:02)
[2025-03-12] MEDS: Lactated Ringers 1,000 ML 80 ML IV (09:20)
[2025-03-12] MEDS: Albuterol/Ipratropium 3 ML UPD VIAL UPD (09:46)
--- NOTE | 2025-03-12 10:16 | W.ANESNERVE ---
Nerve Block Single Injection Procedure Date and Time Date Performed: 03/12/25 Procedure Start: 10:03 Location Where Procedure Performed Procedure Location: Day Surgery Unit Reason Performed: Postoperative Analgesia Requesting Provider: Rosalio Herrera Timeout Performed Timeout Performed: Yes Monitoring Used ECG, Blood Pressure, SpO2 and See EMR for corresponding vital signs Sterility Sterility: Hand Hygiene, Surgical Cap, Surgical Mask, Sterile Gloves and Chlorhexidine Sedation Given During Procedure Sedation Given (Indicate Dose Given): Versed IV Dose:: 2mg IVP Patient Mental Status Patient Mental Status: Sedate with meaningful communication Nerve Block 1st Nerve Block: Laterality: Left Block Type: Adductor Canal Ultrasound Image Saved?: Yes Needle / Catheter Used: 100mm SonoPlex II Local Anesthetic Bolus (Indicate Dose Given): Lidocaine used for local infiltration of skin, Injected in 3-5ml increments after negative blood aspiration, Bupivacaine 0.5% Dose:: 12cc/0.5% (60mg) and Exparel Dose:: 10cc/1.3% (133mg) Additives (Indicate Dose Given): Epinephrine to make 1:200,000 (5mcg/ml) Dose:: 60mcg (added to 0.5% Bupivacaine) Ultrasound: Sterile probe cover and gel used Nerve Stimulator: Not Used Paresthesia: None Procedure Tolerated: No Complications and Patient tolerated well Procedure Outcome: Successful Performed By: Rosalio Herrera
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
[2025-03-12] MEDS: ceFAZolin 2 GM/50 ML BAG IVPB (11:09)
[2025-03-12] MEDS: TRANEXAMIC ACID/SOD. CHL. 1,000 MG/100 ML BAG 600 MG IVPB (11:20)
[2025-03-12] MEDS: fentaNYL 100 MCG/2 ML VIAL IVP ×2 (13:18→13:25)
[2025-03-12] MEDS: HYDROmorphone 2 MG/ML SYR IVP ×3 (13:40→13:59)
--- NOTE | 2025-03-12 14:06 | W.ANESPOSTOP ---
Postoperative Evaluation Date, Time and Location Date Performed: 03/12/25 Time Performed: 14:06 Patient Location: PACU Vital Signs Most Recent Imported Vital Signs: Most Recent Vital Signs Temp Pulse Resp BP Pulse Ox 36.8 C 65 16 184/86 H 99 03/12/25 13:55 03/12/25 13:41 03/12/25 13:41 03/12/25 13:41 03/12/25 13:41 Pain Score Most Recent Pain Score: Most Recent Pain Score Pain Level 7 03/12/25 13:55 Assessment Mental Status: Awake (Alert & Oriented to Patient Baseline) Airway and Respiratory Function: Patent airway with normal (patient baseline) respiratory exam Cardiovascular Function: Hemodynamically Stable Hydration Status: Adequately Hydrated Nausea & Vomiting: No Nausea or Vomiting Pain: Pain is tolerable per patient Peripheral Nerve Block: Regional nerve block not resolved at time of post operative discharge
[2025-03-12] MEDS: Tranexamic Acid 650 MG TAB 1300 MG PO (14:49)
--- NOTE | 2025-03-12 15:15 | IN_ITS ---
PT Notes Visit Reasons: Left knee DJD Physical Therapy Day Surgery Initial Evaluation Date: 03/12/2025 Referring Doctor: NILDA Daniel PT Orders: PT CONSULT: Eval/Treat Precautions: WBAT on the L LE with AD. Patient Profile/Admitting Diagnosis: Mo is a 64-year-old male patient with degenerative joint disease of the L knee and is S/P L total knee arthroplasty on postoperative day 0. PMHX: All Active Problems (Updated 10/30/24 @ 13:22 by Denice Killian RN) History of total right knee replacement (Acute 08/27/24) Osteoarthritis of left knee (Acute) DEPO MEDROL 10/17/24Cluneal neuropathy (Acute) Lumbar radiculitis (Acute) Muscle pain (Acute) Medical History Imaging abnormality Tobacco use Osteoarthritis SpineHypertension Hyperlipidemia History of alcohol dependence Chronic pain BPH (benign prostatic hyperplasia) Osteoarthritis of both knees Lumbar disc disease Gastric mass Erectile dysfunction Colon polyps Cervical disc disease Bladder mass Gross hematuria Unspecified derangement, shoulder region Rotator cuff tear Other and unspecified disc disorder of lumbar region Other and unspecified alcohol dependence, continuous drinking behavior Lumbago High cholesterol Fall Essential hypertension Cervicalgia Back pain Asymptomatic varicose veins Arthritis of knee Surgical History H/O esophagogastroduodenoscopy 03/27/23 H/O shoulder surgery History of bladder surgery Cystourethroscopy with fulguration and/or resection of MEDIUM bladder tumor(s) (2.0 to 5.0 cm) 3H/O repair of rotator cuff Status post lumbar and lumbosacral fusion by anterior technique H/O arthroscopic knee surgery Social History/Home Situation: Independent with all aspects of ADLs prior to surgery. Patient resides alone in a trailer with elevator to enter. Residence is wheelchair/handicap-accessible with wide doors and curb list entry to showers. Patient reports multiple grab bars in bathroom and shower area. Patient was very active prior to surgery, independent ambulation, home management, meal prep, medication management, driving. Equipment Owned/DME: None Subjective: Reported pain in the L knee at 2-3/10 at rest and with ambulation training Objective: General Observation: MICHEAL wrap on L LE. Mental Status: A and O x 4 Pain: As above ROM: Right Lower Extremity: Hip flexion WFL. Hip abduction WFL. Knee flexion WFL. Ankle dorsiflexion WFL. Ankle plantarflexion WFL Left Lower Extremity: Hip flexion WFL. Hip abduction WFL. Knee flexion 10 degrees to 90 degrees. Knee extension -10 degrees. Ankle dorsiflexion WFL. Ankle plantarflexion WFL. Strength: Right Lower Extremity: Hip flexors 5/5. Hip abductors 5/5. Knee flexors 5/5. Knee extensors 5/5. Ankle dorsiflexors 5/5. Ankle plantarflexors 5/5. Left Lower Extremity:Hip flexors 4-/5. Hip abductors 4-/5. Knee flexors 3-/5. Knee extensors 3-/5. Ankle dorsiflexors 4-/5. Ankle plantarflexors 4-/5. Sensation: Intact as to pain and light pressure Bed Mobility/Transfers: Minimal cueing provided for use of B hands as needed for support, movement sequence, AD management, and posture to reduce fall risk and minimize pain report Supine to sit stand by assist Sit to stand contact guard assist with FWW Stand to sit stand by assist with FWW Bed to chair stand by assist with FWW Gait: Facilitated safe and correct performance of level surface ambulation covering a distance of 150 feet using the front-wheeled walker with stand by assist and minimal verbal cueing for AD management, limb movement sequence, and posture to minimize pain report and decrease fall risk. Stairs: Guided patient with safe and correct navigation of 3 x 4-inch steps and 2 x 6- inch steps while holding onto B rails with stand by assist with minimal verbal cueing for hand placement, weight distribution, and posture to minimize pain report and reduce fall risk. Balance: Static Sitting: Normal Dynamic Sitting: Normal Static Standing: Fair Dynamic Standing: Fair Special Tests: Mobility Limitations Standardized Measure [facility] AM-PAC 6 clicks Basic Mobility Inpatient Short Form: Raw Score: 23 CMS Score: 11% deficit Informed Consent/Education: Patient instructed in purpose of PT consult. Packet containing TKA exercise protocol has been given to patient. Education and training on initial set of exercises that can be done at home have been completed with patient. Trained patient with correct performance of exercises below to maximize motor control, joint flexibility, soft tissue extensibility of the L knee musculature: Access Code: [email or web address] URL: [email or web address] Date: 03/14/2025 Prepared by: Carlotta Harris Exercises - Supine Quad Set - 1 x daily - 7 x weekly - 1 sets - 10 reps - 5 hold - Supine Heel Slide - 1 x daily - 7 x weekly - 1 sets - 10 reps - 5 hold - Supine Ankle Pumps - 1 x daily - 7 x weekly - 1 sets - 10 reps - 5 hold - Small Range Straight Leg Raise - 1 x daily - 7 x weekly - 1 sets - 10 reps - 5 hold - Seated March - 1 x daily - 7 x weekly - 1 sets - 10 reps - 5 hold Assessment: Patient requires the use of a front-wheeled walker for all mobility ADL performance to maximize independence and reduce fall risk and minimize pain report. Patient presents with clinical signs and symptoms consistent with current/admitting diagnoses that have resulted to mobility limitations, gait instability, generalized weakness, and impairment of motor control as demonstrated by the following impairment level findings: 1. Decreased strength to left knee major muscle groups 2. Impaired standing balance 3. Limitation of joint range of motion in left knee Impairments are contributing to the following functional limitations: 1. Inability to safely ambulate without assistive device 2. Increase completion time for mobility ADL performance 3. Increased fall risk Patient is assessed as a 36185 moderate complexity based on the following: History: 64-year-old female with impairment level findings, functional limitations, and past medical history as indicated above Examination: Demonstrable impairment in strength, balance, and mobility level with underlying impairments and functional limitations as documented above Presentation: Evolving Decision Makin moderate complexity Goals: N/A. PT evaluation and 1-2 treatment sessions only for functional mobility adamaris juan r using recommended AD and for HEP instruction. Plan of Care/Treatment Plan: N/A. PT evaluation and 1-2 treatment session only for functional mobility training using recommended AD and for HEP instruction. DISCHARGE RECOMMENDATIONS: Home when medically cleared by orthopedic surgeon. Recommend outpatient PT services in order to optimize functional mobility outcomes and facilitate return to independent community ambulation without an assistive device. TREATMENT CODE/TIME: 30265 x 20 minutes for 1 unit (15:15:15:40). Thank you for the opportunity to participate in the care of this patient. Carlotta Harris PT, DPT, CLT [facility] [place], [place]
[2025-03-12] MEDS: HYDROmorphone 4 MG TAB PO (15:53)
--- NOTE | 2025-03-12 17:17 | W.PM.OP ---
Operative Note Operative Note PRE-OP DIAGNOSIS: Left Knee Osteoarthritis POST-OP DIAGNOSIS: same PROCEDURE: Left Total Knee Replacement with Intraoperative Navigation SURGEON: Shelton Crow [employer]PLOY[employer]EF[employer] COORDINATOR: Nandini Hernández ANESTHESIA TYPE: General LMA/ETT Refer to Anesthesia Record ESTIMATED BLOOD LOSS: 150 PATHOLOGY: none sent TOURNIQUET TIME: 0 COMPLICATIONS: None Patient was transported to: PACU Patient's condition: stable Implants: 1. Depuy Attune Cementless Cruciate Retaining Femoral Component, Size 7 2. Depuy Attune Cementless Fixed Bearing Tibial Component, Size 7 3. Depuy Attune 7x6mm CR/FB Poly Indications: I have seen Mo in clinic for symptoms of LEFT knee arthritis, confirmed with radiographic findings. He has exhausted nonoperative methods and was having significant limitations in daily function and desired better function and less pain. I discussed the technical details of a knee replacement. I explained the risks of the procedure to include, but not limited to, bleeding, infection, pain, stiffness, fracture, damage to nerves and vessels, damage to muscles and tendons, loosening, need for repeat procedure, blood clot and cardiopulmonary demise. Despite these risks, Mo elected to proceed. Findings: There was significant signs of arthritis throughout the knee, primarily affecting the medial side of the knee with notable varus deformity. Procedure Description: Mo was greeted in the preoperative holding area where the correct side was identified and marked. The consent was reviewed with the patient and signed. The history and physical was updated. All questions were answered. Preoperative mediacations were administered: Acetaminophen 1000mg, Celebrex 400mg, and Gabapentin 300mg. An adductor canal block was then administered by the anesthesia team in the D[facility]. He was taken back to the operating room. A general anesthestic was then administered. The patient was placed into the supine position on the operating room table. Posts were placed for positioning during the procedure. All bony prominences were well padded. Prophylactic antibiotics in the form of Cefazolin were administered. 1g of Tranxemic Acid was given intravenously within 30 minutes of incision. The left leg was then prepped with Chloraprep and draped in a standard fashion with impervious stockinette. A second prep with Chloraprep was performed prior to application of Iodine impregnated skin protection. A timeout to confirm correct identity, side and site, procedure, allergies, anesthesia, and medical concerns was performed. With the knee in some flexion, a midline incision was made overlying the knee. Full thickness skin flaps were raised once the extensor mechanism was encountered. These were raised medially and laterally. Any bleeding was controlled with electrocautery. Once the extensor mechanism was fully exposed, a medial parapatellar arthrotomy was performed in a flexed position. All bleeding from the arthrotomy and the geniculate arteries was coagulated. A medial subperiosteal peel was performed with electrocautery to the midcoronal plane. Due to the significant varus deformity the entire medial tibial plateau was exposed. The fat pad was removed while keeping the patellar tendon protected. The anterior distal femur synovium was removed for later visualization. The ACL and PCL were resected and the anterior horn of the lateral meniscus was transected. The knee was then flexed with the patella everted. Large osteophytes from the tibia were removed. Large osteophytes from the femur were removed. A single starting pin was then placed 1cm anterior to the PCL insertion and the notch in the direction of the femoral head. The OrthoAlign device was applied over the pin. It was oriented to be in line with the epicondylar axis and the trochlear groove. It was then pinned into place. The navigation computer was then turned on and calibrated. The distal femur cut was set at 0.5 degrees varus and 3.5 degrees flexion. The distal femur cutting guide then was positioned for a 9mm cut. The distal femur was cut with an oscillating saw while protecting the soft tissues. The tibia was then addressed. The OrthoAlign device was placed over the tibial tubercle and medial tibia and secured into position. Once again, OrthoAlign was calibrated and then set for a 2 degree varus cut and 5.5 degrees of posterior slope. With this locked into position, the cut thickness stylus was used to assess cut thickness. The medial side, most involved side, was set for a 4mm cut. This was then held in position and pinned into place with 2 additional pins and a cross pin for stability. The medial and lateral collateral ligaments were protected and the cut was performed. With this completed, it was assessed and noted to be of appropriate dimensions. The guide and OrthoAlign was removed. A spacer block was inserted and the knee was brought into extension to ensure enough space was present. . The Orthoalign gap balancing device was then placed in extension. This was used to ensure that the ligaments were properly balanced with up to 2 to 3 mm laxity laterally compared medially. The extension gap was measured as 18mm. The knee was then brought into 90 degrees of flexion and the ligament printed circuit boards router was once again placed. Under the same amount of force the flexion gap was measured. The Attune specific jig was placed and the flexion gap was made to match the extension gap. The femur was then sized as a size 7. The 4-in-1 cutting guide was the placed. An maite wing was used to confirm appropriate position of the anterior cut to avoid notching. This cutting guide was ensured to be flush on the cut surface and then pinned into place with headed pins. While protecting the soft tissues, quad tendon, and collateral ligaments, the anterior and posterior cuts were performed with a saw. The central two pins were removed and the posterior and anterior chamfers were cut next. The notch-cutting guide was placed. This was pinned to lateralize the femoral component as much as possible while keeping it flush on the cut surface. This was then pinned into position. A saw was used to make the notch cut. A rasp smoothed the cut surfaces. The medial and lateral menisci were removed. A trial femoral component was then inserted, impacted down to the cut surfaces, and the lug holes were drilled. A provisional trial tibial component was placed and the knee was brought through range of motion. There was noted to be excellent extension and flexion. There was no significant instability. The patella was tracking without thumbs. A size 6mm polyethylene component provided the best range of motion and stability with less than 2mm gapping with medial and lateral stress and full extension without significant hyperextension. The tibial cut surface was fully exposed. The tibia was then sized as a 7. The tibia had been previously marked during trialing to correspond to the center of the tibial component to help with rotation. The trial was aligned to this vira, approximately rotated to the medial 1/3rd of the tibial tubercle. The trial was pinned into place. The tibia was prepared with a reamer and a keel punch and lug holes. The trial components were removed. The final components were opened on the back table. The periosteal and capsular tissues, especially posteriorly, around the knee were then systematically injected with a periarticular cocktail consisting of 246mg of Ropivacaine, 0.5mg of Epinephrine, 0.08mg of Clonidine, and 30mg of Ketorolac, diluted to 100cc. Then, the knee components were placed. Starting with the tibial component, the tibia was subluxed anteriorly and the lug holes of the component were lined up. The tibia was then impacted with an impactor and mallet until the tibial component was in contact with the tibia. Then, the femoral component was inserted. The lug holes were aligned and the component was impacted into position. The final polyethylene component was inserted. The knee was irrigated with Surgiphor Betadine solution. This was allowed to sit in the knee for 3 minutes and then it was thoroughly irrigated out with saline. The knee was then taken through range of motion. The patella was tracking with a no-thumbs technique. A complete synovectomy of the patella was performed. Any prominence to the lateral facet was resected with a rongeur. The capsule was then reapproximated with a No. 1 Vicryl at multiple locations. The capsule was finally closed with a No. 2 Stratafix, barbed suture. Deep tissues were then reapproximated with 0 Vicryl and 2-0 Vicryl. The skin was closed with a running 3-0 Monocryl in a subcuticular fashion. This was reinforced with skin glue. A Mepilex silver dressing was applied along with a [id number] MICHEAL wrap. A CryoCuff was applied. Mo was transferred to the hospital bed without difficulty an suffering no apparent complication. He has a good prognosis. Physical therapy will start today and without restrictions, weight-bearing as tolerated. Aspirin 81mg BID will be used for DVT prophylaxis. Date of Procedure: 03/12/25
== END 2025-03-12 16:21 | disposition home or self-care (01) ==
LOC: SUR 08:28
PROVIDERS: PCP Family Medicine; Visit Provider Student in an Organized Health Care Education/Training Program
PROC: (CPT 27447; principal; 2025-03-12 10:45)
DX: M17.12 Unilateral primary osteoarthritis, left knee (principal); G89.18 Other acute postprocedural pain
CPT/HCPCS: 27447; 20985; 64447; 97162; 97530; C1776; J0166; J0665; J0666; J0690; J1100; J1171; J1920; J2003; J2250; J2405; J2704; J3010; J7620

== ENCOUNTER 2025-03-27 10:37 | Outpatient (CLI) | payer MEDICARE, SELFPAY ==
--- NOTE | 2025-03-27 09:30 | DI.RAD_ITS ---
Exam(s) XR KNEE LT 1V XR STANDING ALIGNMENT EXAM: XR STANDING ALIGNMENT CLINICAL HISTORY: 1ST POST OP L TKA. TECHNIQUE: 2D digital imaging was performed. Standing AP views were performed from the pelvis through the ankles. COMPARISON: CR XR STANDING ALIGNMENT from 09/09/2024 CR XR KNEE LT 1V from 03/03/2025 CR XR KNEE LT 1V from 03/27/2025 FINDINGS: BONES: No acute fracture is present. No bony destructive lesion is seen. Hardware in the lower lumbar spine. Leg length discrepancy: No significant overall leg length discrepancy. JOINTS: Knees: Bilateral total knee prostheses.The left knee prosthesis has been placed since the prior exam. The alignment appears satisfactory. The ankle joints are unremarkable. The hip joints are unremarkable. SOFT TISSUE: Mild soft tissue swelling. IMPRESSION: Bilateral knee prostheses. No significant leg length discrepancy. DATA REPOSITORY: RADIATION DOSE DELIVERED:
== END 2025-03-27 10:38 | disposition home or self-care (01) ==
LOC: DIORS 10:37
PROVIDERS: PCP Family Medicine; Visit Provider Physician Assistant
DX: Z96.652 Presence of left artificial knee joint (principal)
CPT/HCPCS: 73560; 77073

== ENCOUNTER → 2025-05-08 11:21 | Outpatient (BNVA) | payer MEDICARE, SELFPAY | PROVIDERS: PCP Family Medicine; Referring Provider Family Medicine; Visit Provider Physician Assistant | DX: Z47.1 Aftercare following joint replacement surgery (principal); Z96.652 Presence of left artificial knee joint | CPT/HCPCS: 99024 ==